=== PATIENT | female | born 1940 | race Caucasian/White ===

== ENCOUNTER 2023-11-01 05:44 | Inpatient (IN) | payer MEDICARE, BC ==
[~2023-11-01] VITALS: Ht 162.6 cm; Wt 72.7 kg
[~2023-11-01 05:44] MED LIST: ALBU18HF2 INH; ASPI81TA52 PO; CITA-311 PO; DULO-31 PO; IBUP-24 PO; LEVO100T PO; LOSA100T58 PO
[2023-11-01 06:28] LABS: BASOPHILS # (AUTO) 0.1 X10'3 (0-0.2); BASOPHILS % (AUTO) 0.4 % (0-1); EOSINOPHILS % (AUTO) 0.2 % (0-6); LYMPHOCYTES # (AUTO) 0.8 X10'3 (1.1-4.8); LYMPHOCYTES % (AUTO) 5.8 % (21-51); MEAN CORPUSCULAR HEMOGLOBIN 29.8 PG (27.0-31.0); MEAN CORPUSCULAR HGB CONC 33.3 g/dL (33.0-36.5); MEAN CORPUSCULAR VOLUME 89.3 FL (78-98); MEAN PLATELET VOLUME 7.7 FL (7.4-10.4); MONOCYTES % (AUTO) 7.3 % (2-12); NEUTROPHILS % (AUTO) 86.3 % (42-75); PLATELET COUNT 212 X10'3 (140-440); RED BLOOD COUNT 4.37 X10'6 (4.20-5.60); RED CELL DISTRIBUTION WIDTH 13.3 % (11.5-14.5)
[2023-11-01 06:37] LABS: ALANINE AMINOTRANSFERASE 23 U/L (12-78); ALBUMIN 2.7 G/DL (3.4-5.0); ALBUMIN/GLOBULIN RATIO 0.5 (1.1-1.5); ALKALINE PHOSPHATASE 77 IU/L (46-116); ANION GAP 10 (8-16); ASPARTATE AMINO TRANSFERASE 17 U/L (10-37); BILIRUBIN,TOTAL 0.6 MG/DL (0.1-1.0); BLOOD UREA NITROGEN 45 MG/DL (7-18); BUN/CREATININE RATIO 14.1 (10.0-20.0); CALCIUM 8.9 MG/DL (8.5-10.1); CHLORIDE 100 MMOL/L (99-107); GLUCOSE 137 MG/DL (70-104); POTASSIUM 4.6 MMOL/L (3.5-5.1); SODIUM 133 MMOL/L (135-145); TOTAL CARBON DIOXIDE 22.7 MMOL/L (24-32); TOTAL PROTEIN 7.8 G/DL (6.4-8.2); eCRCL 11 ML/MIN; eGFR 14 ML/MIN
[2023-11-01 06:46] LABS: PRO BRAIN NATRIURETIC PEPTIDE 884 PG/ML (0-450)
[2023-11-01 07:37] LABS: LIPASE 14 U/L (16-77)
[2023-11-01] MEDS: normal saline 1000ML IV soln IVB ONE (07:41)
[2023-11-01 07:54] LABS: BILIRUBIN,URINE NEGATIVE (Neg); CLARITY,URINE CLOUDY (Clear); COLOR,URINE YELLOW (Yellow); GLUCOSE, URINE NEGATIVE (Neg); KETONES,URINE NEGATIVE (Neg); LEUKOCYTE ESTERASE ,URINE MODERATE (Neg); NITRITES, URINE NEGATIVE (Neg); OCCULT BLOOD,URINE LARGE (Neg); PROTEIN,URINE 100 mg/dl (Neg); UROBILINOGEN,URINE 0.2 E.U/dL (0.2-1.0)
[2023-11-01 08:07] LABS: UA COLLECTION TYPE OTHER
[2023-11-01 08:09] LABS: BACTERIA,URINE 4+ /HPF (Neg); SQUAMOUS EPITHELIAL CELL,UR NONE SEEN /LPF (FEW)
[2023-11-01 08:10] LABS: RBC,URINE 20-50 /HPF (0-2); WBC,URINE 50-100 /HPF (0-4)
[2023-11-01] MEDS: CefTRIAXone 2gm/D5W 50ml BAG 50 ML IV ONE (09:40)
[2023-11-01] MEDS ORDERED: mag hydrox/Alum hydrox/simeth 30ml oral suspension PO PRN (10:20)
[2023-11-01] MEDS ORDERED: magnesium sulf-water 4G/100mL 100 ML IV PRN (10:20)
[2023-11-01] MEDS ORDERED: docusate sod 100mg capsule PO PRN (10:20)
[2023-11-01] MEDS ORDERED: acetaminophen 325mg tablet PO PRN (10:20)
[2023-11-01] MEDS ORDERED: potassium Cl 40MEQ/1/2NS 520ml 520 ML IV PRN (10:20)
[2023-11-01] MEDS ORDERED: ondansetron/PF 4mg/2ml inj IV PRN (10:20)
[2023-11-01] MEDS ORDERED: potassium Cl 20 mEq SR tablet PO PRN ×2 (10:20)
[2023-11-01] MEDS ORDERED: morphine 2 MG/ML inj. syringe IV PRN ×2 (10:20)
[2023-11-01] MEDS ORDERED: magnesium sulf-water 2g/50mL 50 ML IV PRN (10:20)
[2023-11-01] MEDS: normal saline 1000ml 1,000 ML IV SCH (11:30)
[2023-11-01 15:13] VITALS: RESP 18; O2SAT 98
[2023-11-01 15:37] VITALS: BP 124/58; PULSE 77; RESP 15; TEMP 97.9; O2SAT 98
[2023-11-01 18:00] VITALS: BP 153/70; PULSE 78; RESP 14; TEMP 97.8; O2SAT 95
[2023-11-01] MEDS: heparin, porcine 5000 units/ml vial SQ SCH (20:00)
[2023-11-01] MEDS: K and/or MAG REPLACEMENT MC SCH (20:00)
[2023-11-01 22:00] VITALS: BP 151/74; PULSE 87; RESP 14; TEMP 98.5; O2SAT 96
[2023-11-02 06:00] VITALS: BP 167/75; PULSE 77; RESP 16; TEMP 98.5; O2SAT 93
[2023-11-02 06:05] LABS: BASOPHILS % (AUTO) 0.3 % (0-1); EOSINOPHILS # (AUTO) 0.2 X10'3 (0-0.9); EOSINOPHILS % (AUTO) 2.2 % (0-6); HEMOGLOBIN 11.1 g/dl (12.0-16.0); LYMPHOCYTES # (AUTO) 1.1 X10'3 (1.1-4.8); LYMPHOCYTES % (AUTO) 10.7 % (21-51); MEAN CORPUSCULAR HEMOGLOBIN 29.6 PG (27.0-31.0); MEAN CORPUSCULAR HGB CONC 32.7 g/dL (33.0-36.5); MEAN CORPUSCULAR VOLUME 90.4 FL (78-98); MEAN PLATELET VOLUME 7.3 FL (7.4-10.4); MONOCYTES # (AUTO) 1.1 X10'3 (0-0.9); MONOCYTES % (AUTO) 11.6 % (2-12); NEUTROPHILS # (AUTO) 7.4 X10'3 (1.8-7.7); NEUTROPHILS % (AUTO) 75.2 % (42-75); PLATELET COUNT 195 X10'3 (140-440); RED BLOOD COUNT 3.76 X10'6 (4.20-5.60); RED CELL DISTRIBUTION WIDTH 13.6 % (11.5-14.5); WHITE BLOOD COUNT 9.8 X10'3 (4.5-11.0)
[2023-11-02 06:22] LABS: ALANINE AMINOTRANSFERASE 30 U/L (12-78); ALBUMIN 2.1 G/DL (3.4-5.0); ALBUMIN/GLOBULIN RATIO 0.5 (1.1-1.5); ALKALINE PHOSPHATASE 63 IU/L (46-116); ANION GAP 6 (8-16); ASPARTATE AMINO TRANSFERASE 27 U/L (10-37); BILIRUBIN,TOTAL 0.2 MG/DL (0.1-1.0); BLOOD UREA NITROGEN 51 MG/DL (7-18); BUN/CREATININE RATIO 16.3 (10.0-20.0); CALCIUM 8.2 MG/DL (8.5-10.1); CHLORIDE 109 MMOL/L (99-107); CREATININE 3.12 MG/DL (0.40-0.90); GLUCOSE 99 MG/DL (70-104); MAGNESIUM 2.4 MG/DL (1.5-2.4); POTASSIUM 4.4 MMOL/L (3.5-5.1); SODIUM 138 MMOL/L (135-145); TOTAL CARBON DIOXIDE 23.2 MMOL/L (24-32); TOTAL PROTEIN 6.5 G/DL (6.4-8.2); eCRCL 12 ML/MIN; eGFR 14 ML/MIN
[2023-11-02 08:00] VITALS: RESP 21; O2SAT 95
[2023-11-02] MEDS: CefTRIAXone/D5W-Rocephin 1gm 50 ML IV SCH (10:05)
[2023-11-02 12:00] VITALS: BP 144/59; PULSE 74; RESP 21; TEMP 98.2; O2SAT 95
[2023-11-02 18:00] VITALS: BP 159/78; PULSE 91; RESP 18; TEMP 97.7; O2SAT 95
[2023-11-02 22:00] VITALS: BP 172/72; PULSE 78; RESP 13; TEMP 98.7; O2SAT 95
[2023-11-03 05:57] LABS: BASOPHILS # (AUTO) 0.1 X10'3 (0-0.2); BASOPHILS % (AUTO) 0.7 % (0-1); EOSINOPHILS # (AUTO) 0.3 X10'3 (0-0.9); EOSINOPHILS % (AUTO) 2.9 % (0-6); HEMATOCRIT 34.7 % (35.0-45.0); HEMOGLOBIN 11.5 g/dl (12.0-16.0); LYMPHOCYTES # (AUTO) 1.1 X10'3 (1.1-4.8); LYMPHOCYTES % (AUTO) 12.5 % (21-51); MEAN CORPUSCULAR HEMOGLOBIN 30.1 PG (27.0-31.0); MEAN CORPUSCULAR HGB CONC 33.2 g/dL (33.0-36.5); MEAN CORPUSCULAR VOLUME 90.8 FL (78-98); MEAN PLATELET VOLUME 7.9 FL (7.4-10.4); MONOCYTES # (AUTO) 1.1 X10'3 (0-0.9); MONOCYTES % (AUTO) 12.6 % (2-12); NEUTROPHILS # (AUTO) 6.3 X10'3 (1.8-7.7); NEUTROPHILS % (AUTO) 71.3 % (42-75); PLATELET COUNT 204 X10'3 (140-440); RED BLOOD COUNT 3.82 X10'6 (4.20-5.60); RED CELL DISTRIBUTION WIDTH 13.8 % (11.5-14.5); WHITE BLOOD COUNT 8.9 X10'3 (4.5-11.0)
[2023-11-03 06:00] VITALS: BP 171/81; PULSE 75; RESP 14; TEMP 98; O2SAT 94
[2023-11-03] MEDS ORDERED: bisacodyl 10mg suppository rectal RC PRN (07:35)
[2023-11-03 08:00] VITALS: RESP 14; O2SAT 94
[2023-11-03] MEDS ORDERED: albuterol 2.5 MG/3 ML nebule NEB PRN (08:00)
[2023-11-03] MEDS: losartan 50mg tablet PO SCH (09:00)
[2023-11-03] MEDS: docusate sod 100mg capsule PO SCH (09:00)
[2023-11-03] MEDS: CITALOpram 10mg tablet PO SCH (09:00)
[2023-11-03] MEDS: levoTHYROXINE 100mcg tablet PO SCH (09:00)
[2023-11-03] MEDS: duloxetine 30mg CAPSULE.DR PO SCH (09:00)
[2023-11-03] MEDS: aspirin 81mg, enteric-coated 1 TAB TABLET.DR PO SCH (09:01)
[2023-11-03 09:36] LABS: ALANINE AMINOTRANSFERASE 52 U/L (12-78); ALBUMIN 2.1 G/DL (3.4-5.0); ALBUMIN/GLOBULIN RATIO 0.4 (1.1-1.5); ALKALINE PHOSPHATASE 69 IU/L (46-116); ANION GAP 8 (8-16); ASPARTATE AMINO TRANSFERASE 40 U/L (10-37); BILIRUBIN,TOTAL 0.2 MG/DL (0.1-1.0); BLOOD UREA NITROGEN 44 MG/DL (7-18); BUN/CREATININE RATIO 19.1 (10.0-20.0); CALCIUM 8.4 MG/DL (8.5-10.1); CHLORIDE 109 MMOL/L (99-107); GLUCOSE 139 MG/DL (70-104); POTASSIUM 4.5 MMOL/L (3.5-5.1); SODIUM 139 MMOL/L (135-145); TOTAL CARBON DIOXIDE 22.2 MMOL/L (24-32); TOTAL PROTEIN 6.8 G/DL (6.4-8.2); eCRCL 16 ML/MIN; eGFR 20 ML/MIN
[2023-11-03 10:00] VITALS: BP 167/90; PULSE 72; RESP 16; TEMP 98.5; O2SAT 95
[2023-11-03] MEDS: tamsulosin 0.4mg capsule PO ONE (13:19)
[2023-11-03 18:00] VITALS: BP 178/88; PULSE 73; RESP 14; TEMP 97.8; O2SAT 98
[2023-11-03 22:00] VITALS: BP 142/67; PULSE 67; RESP 15; TEMP 97.6; O2SAT 96
[2023-11-04 06:00] VITALS: BP 160/65; PULSE 73; RESP 15; TEMP 97; O2SAT 97
[2023-11-04 06:08] LABS: BASOPHILS # (AUTO) 0.1 X10'3 (0-0.2); BASOPHILS % (AUTO) 0.8 % (0-1); EOSINOPHILS # (AUTO) 0.3 X10'3 (0-0.9); EOSINOPHILS % (AUTO) 3.4 % (0-6); HEMATOCRIT 35.5 % (35.0-45.0); HEMOGLOBIN 11.7 g/dl (12.0-16.0); LYMPHOCYTES # (AUTO) 1.4 X10'3 (1.1-4.8); LYMPHOCYTES % (AUTO) 16.6 % (21-51); MEAN CORPUSCULAR HEMOGLOBIN 29.4 PG (27.0-31.0); MEAN CORPUSCULAR VOLUME 88.9 FL (78-98); MEAN PLATELET VOLUME 7.3 FL (7.4-10.4); MONOCYTES % (AUTO) 11.8 % (2-12); NEUTROPHILS # (AUTO) 5.8 X10'3 (1.8-7.7); NEUTROPHILS % (AUTO) 67.4 % (42-75); PLATELET COUNT 236 X10'3 (140-440); RED BLOOD COUNT 3.99 X10'6 (4.20-5.60); RED CELL DISTRIBUTION WIDTH 13.3 % (11.5-14.5); WHITE BLOOD COUNT 8.6 X10'3 (4.5-11.0)
[2023-11-04 06:29] LABS: ALANINE AMINOTRANSFERASE 47 U/L (12-78); ALBUMIN 2.5 G/DL (3.4-5.0); ALBUMIN/GLOBULIN RATIO 0.5 (1.1-1.5); ALKALINE PHOSPHATASE 68 IU/L (46-116); ANION GAP 7 (8-16); ASPARTATE AMINO TRANSFERASE 29 U/L (10-37); BILIRUBIN,TOTAL 0.3 MG/DL (0.1-1.0); BLOOD UREA NITROGEN 41 MG/DL (7-18); BUN/CREATININE RATIO 19.2 (10.0-20.0); CALCIUM 8.2 MG/DL (8.5-10.1); CHLORIDE 105 MMOL/L (99-107); CREATININE 2.14 MG/DL (0.40-0.90); GLUCOSE 87 MG/DL (70-104); MAGNESIUM 2.5 MG/DL (1.5-2.4); SODIUM 136 MMOL/L (135-145); TOTAL CARBON DIOXIDE 24.2 MMOL/L (24-32); TOTAL PROTEIN 7.1 G/DL (6.4-8.2); eCRCL 17 ML/MIN; eGFR 22 ML/MIN
[2023-11-04] MEDS: tamsulosin 0.4mg capsule PO SCH (08:56)
[2023-11-04] MEDS: amLODIPine 5mg tablet PO SCH (08:57)
[2023-11-04 10:00] VITALS: BP 173/84; PULSE 80; RESP 18; O2SAT 97
[2023-11-04] MEDS ORDERED: tamsulosin capsule PO (10:57)
[2023-11-04] MEDS ORDERED: LEVO250T74 PO (10:57)
[2023-11-04] MEDS ORDERED: AMLO-823 PO (10:57)
== END 2023-11-04 15:20 | disposition home health service (06) | DRG 698 ==
LOC: ER 05:44 → ED HOLD 10:33 → EDBEDREQ 12:09 → ORTHO 4S 14:28
PROVIDERS: ADMIT Family Medicine; ATTEND Family Medicine
DX: N13.9 Obstructive and reflux uropathy, unspecified (principal); N17.0 Acute kidney failure with tubular necrosis; N13.6 Pyonephrosis; I12.0 Hypertensive chronic kidney disease with stage 5 chronic kidney disease or end stage renal disease; N18.5 Chronic kidney disease, stage 5; R65.10 Systemic inflammatory response syndrome (SIRS) of non-infectious origin without acute organ dysfunction; F32.A Depression, unspecified; Z66 Do not resuscitate; C67.9 Malignant neoplasm of bladder, unspecified; E03.9 Hypothyroidism, unspecified; Z85.51 Personal history of malignant neoplasm of bladder; Z88.5 Allergy status to narcotic agent; Z79.899 Other long term (current) drug therapy; Z88.8 Allergy status to other drugs, medicaments and biological substances; Z91.040 Latex allergy status; Z79.82 Long term (current) use of aspirin; Z93.50 Unspecified cystostomy status; B96.1 Klebsiella pneumoniae [K. pneumoniae] as the cause of diseases classified elsewhere
CPT/HCPCS: 36415; 70450; 71045; 72170; 73560; 74176; 80053; 81001; 83605; 83690; 83735; 83880; 84145; 84484; 85025; 87040; 87077; 87081; 87088; 87186; 93005; 96365; 97116; 97161; 97530; 99285; A6258; G0378; J0696; J1644; J7030